=== PATIENT | male | born 1960 | race Caucasian/White ===

== ENCOUNTER 2017-07-17 14:39 | Emergency (ER) | payer BC ==
[2017-07-17 15:21] VITALS: BP 150/83
--- NOTE | 2017-07-17 15:39 | UC ---
Knee Pain HPI - HPI Summary HPI Summary: 57 yo male with right knee pain and swelling x 1 week no trauma feels tight occasionally locks does not buckle - History of Current Complaint Chief Complaint: UCLowerExtremity Stated Complaint: SWOLLEN KNEE Time Seen by Provider: 07/17/17 15:29 Hx Obtained From: Patient Onset/Duration: Gradual Onset, Lasting Days Severity Initially: Mild Severity Currently: Mild Pain Intensity: 4 Pain Scale Used: 0-10 Numeric Character: Dull, Aching Aggravating Factor(s): Prolonged Standing, Stairs Alleviating Factor(s): Rest Associated Signs And Symptoms: Positive: Swelling Able to Bear Weight: Yes - Risk Factors Septic Arthritis Risk Factor: Negative - Allergies/Home Medications Allergies/Adverse Reactions: Allergies Allergy/AdvReac Type Severity Reaction Status Date / Time No Known Allergies Allergy Verified 07/17/17 15:20 PMH/Surg Hx/FS Hx/Imm Hx Previously Healthy: Yes - HIRO Endocrine History: Dyslipidemia Cardiovascular History: Hypertension - Surgical History Surgical History: Yes Surgery Procedure, Year, and Place: Left knee arthroscopy, repair of meniscus - Family History Known Family History: Positive: Cardiac Disease, Hypertension, Other - [place] - Social History Alcohol Use: Occasionally Substance Use Type: None Smoking Status (MU): Never Smoked Tobacco - Immunization History Most Recent Tetanus Shot: PT STATES WITHIN THE LAST 5 YRS. Review of Systems Constitutional: Negative Skin: Negative Eyes: Negative ENT: Negative Respiratory: Negative Cardiovascular: Negative Gastrointestinal: Negative Genitourinary: Negative Motor: Negative Neurovascular: Negative Musculoskeletal: Arthralgia Neurological: Negative Psychological: Negative Is Patient Immunocompromised?: No All Other Systems Reviewed And Are Negative: Yes Physical Exam Triage Information Reviewed: Yes Appearance: Well-Appearing, No Pain Distress, Well-Nourished Vital Signs: Initial Vital Signs Temp 98.2 F 07/17/17 15:17 Pulse 78 07/17/17 15:17 Resp 14 07/17/17 15:17 BP 150/83 07/17/17 15:17 Vital Signs Reviewed: Yes Eyes: Positive: Conjunctiva Clear ENT: Positive: Hearing grossly normal. Negative: Nasal congestion, Nasal drainage, Trismus, Muffled/hoarse voice Neck: Positive: Supple, Nontender Respiratory: Positive: Lungs clear, Normal breath sounds, No respiratory distress, No accessory muscle use Cardiovascular: Positive: RRR Musculoskeletal: Positive: Strength Intact, Edema @ - right knee effusion, Other : - tender right medial joint line Neurological: Positive: Alert Psychological Exam: Normal Skin Exam: Normal Knee Pain Course/Dx - Differential Dx/Diagnosis Provider Diagnoses: right knee effusion. ? small medial meniscal tear Discharge - Discharge Plan Condition: Stable Disposition: HOME Patient Education Materials: Swollen Knee Joint (ED) Referrals: Stanford Blake MD [Medical Doctor] - 1 Day Additional Instructions: ice twice daily aleve 1-2 twice daily for pain
== END 2017-07-17 15:59 | disposition home or self-care (01) ==
LOC: UCCORT 14:39
DX: M25.461 Effusion, right knee (principal); M25.561 Pain in right knee; G47.33 Obstructive sleep apnea (adult) (pediatric); E78.5 Hyperlipidemia, unspecified; I10 Essential (primary) hypertension
CPT/HCPCS: 99211; G0463